=== PATIENT | male | born 1980 | race Caucasian/White ===

== ENCOUNTER 2024-09-22 13:06 | Emergency (ER) | payer BC, SELFPAY ==
[2024-09-22 13:12] VITALS: BP 104/79
--- NOTE | 2024-09-22 13:39 | ED.GENMED ---
History of Present Illness
General
Chief Complaint: Head Injury
Time Seen by Provider: 09/22/24 13:34
History of Present Illness
History of Present Illness:
TIME OF INITIAL ENCOUNTER: 1:45 PM
HPI: The patient slipped and fell at a restaurant and struck the back of his head.
EXAM:
NUMBER AND COMPLEXITY OF PROBLEMS ADDRESSED AT THE ENCOUNTER
� Chronic conditions affecting care: MS
� Acute Exacerbation and/or Progression of Chronic Illness: This is an acute problem
� Differential Diagnosis includes:
AMOUNT AND/OR COMPLEXITY OF DATA TO BE REVIEWED AND ANALYZED
� I performed an independent evaluation of and my interpretation is:
EKG:
CT:
X-rays:
Laboratory Studies:
Other:
� Review of other/old records:
� Clinical information was obtained by an independent historian:
� Prescriptions/Medications Considered but not given:
� Further testing considered but not performed:
RISK OF COMPLICATIONS AND/OR MORBIDITY OR MORTALITY OF PATIENT MANAGEMENT
� Social determinants of health affecting care:
� Discussion with other providers:
� Escalation of care including admission/observation vs risk of discharge considered:
ANY OTHER UPDATES:
Course
Orders/Labs/Results
Orders:
Orders
09/22/24 13:15
CT Head W/o Iv Contrast Urgent
Comment:
Reason For Exam: fall with head strike
Vital Signs
Initial and Last Documented VS:
Initial Vital Signs
Temp Pulse Resp BP Pulse Ox
37.1 C 95 17 104/79 100
09/22/24 13:12 09/22/24 13:12 09/22/24 13:12 09/22/24 13:12 09/22/24 13:12
Last Documented Vital Signs
Temp Pulse Resp BP Pulse Ox
37.1 C 95 17 104/79 100
09/22/24 13:12 09/22/24 13:12 09/22/24 13:12 09/22/24 13:12 09/22/24 13:12
ED Attending Note
-
Portions of this chart may have been created with voice recognition software.� Occasional wrong word or��sound alike� substitutions may have occurred due to the inherent limitations of voice recognition software.
Discharge Plan
Departure
Prescriptions:
No Action
valacyclovir [Valtrex] 500 MG tablet
500 mg PO PRN (Reason: outbreak)
Interventions
Interventions:
*Risk Screen - Suicide Last Done: 09/22/24 13:14
*General Assessment Last Done: 09/22/24 13:14
*Neglect/Abuse Screening Last Done: 09/22/24 13:14
*ED COVID-19 Vaccine History Last Done: 09/22/24 13:14
Discharge Date and Time
Print Language: SERBIAN
--- NOTE | 2024-09-22 14:22 | ED.GENMED ---
History of Present Illness
General
Chief Complaint: Head Injury
Time Seen by Provider: 09/22/24 13:34
History of Present Illness
History of Present Illness:
43-year-old male presents to the emergency department for evaluation of a head injury after a mechanical fall. No LOC. Large laceration noted to the right posterior parietal and occipital scalp, last tetanus unknown
Review of Systems
Review of Systems
Allergies reviewed?: Yes
All Other Systems: ROS reviewed and negative except as documented in HPI and ROS
Phy Exam
Physical Exam
Physical Exam:
GEN: Well appearing, NAD, WDWN
HEENT: Large 6 cm stellate lesion to the right posterior parietal and occipital scalp with moderate active bleeding oral mucosa moist, no scleral icterus
Cardiac: Regular rate
Lung: No respiratory distress, no tachypnea
MSK: No gross deformity or injuries
Skin: Good color, no pallor or jaundice, no rashes
Neuro: AO x3, cranial nerves II through XII grossly intact, moves all extremities freely
Psych: Calm, cooperative
Course
Orders/Labs/Results
Orders:
Orders
09/22/24 13:15
CT Head W/o Iv Contrast Urgent
Comment:
Reason For Exam: fall with head strike
09/22/24 14:22
Butalb/Acetaminophen/Caffeine [Fioricet] 1 tab PO NOW STA
Tetanus/Diphth/Acelpertussis [Adacel] 0.5 ml IM .ONCE ONE
Vital Signs
Initial and Last Documented VS:
Initial Vital Signs
Temp Pulse Resp BP Pulse Ox
98.7 F 95 17 104/79 100
09/22/24 13:12 09/22/24 13:12 09/22/24 13:12 09/22/24 13:12 09/22/24 13:12
Last Documented Vital Signs
Temp Pulse Resp BP Pulse Ox
98.7 F 89 17 141/84 99
09/22/24 13:12 09/22/24 14:58 09/22/24 13:12 09/22/24 14:58 09/22/24 14:58
Procedures
Laceration Closure
Scalp:
Status of Wound: clean
Size of Wound in cm: 6
Description of Wound Edges: ragged and surrounded by abrasion
Preparation: cleaned with saline
Anesthesia: 1% Lidocaine
Wound exploration: explored to base- no FB
Type of Closure: single layer closure
Skin Closure Material: skin [place]
Number of sutures: 12
MDM/Problems Addressed
MDM/Problems Addressed:
CT of the head unremarkable, wound closed with [place], tetanus status updated
*Critical Care Note
Total Time (30-74mins, 75-104mins- exclusive of procedures): Not Applicable
ED Attending Note
-
Portions of this chart may have been created with voice recognition software.� Occasional wrong word or��sound alike� substitutions may have occurred due to the inherent limitations of voice recognition software.
Discharge Plan
Departure
Patient Disposition: Home (Routine Discharge)
Date of Disposition: 09/22/24
Time of Disposition: 14:22
Patient with high blood pressure during this ER visit?: No
Discharge Problem:
Laceration of scalp
Instructions: Laceration Repair With [place] (DC)
Prescriptions:
No Action
valacyclovir [Valtrex] 500 MG tablet
500 mg PO PRN (Reason: outbreak)
Referrals:
Mario Allen MD [Family Provider] -
Stand Alone Forms: Return to Work
Activity Restrictions/Additional Instructions:
Keep wound dry for the remainder of today then you may gently wash with soap and water. [place] should be removed in 5 to 7 days by your primary care physician or urgent care
Interventions
Interventions:
*Risk Screen - Suicide Last Done: 09/22/24 13:14
*General Assessment Last Done: 09/22/24 13:14
*Neglect/Abuse Screening Last Done: 09/22/24 13:14
*ED- Fall Risk Assessment Last Done: 09/22/24 15:09
*ED COVID-19 Vaccine History Last Done: 09/22/24 13:14
*Nursing Disposition Last Done: 09/22/24 15:09
ED-Skin Assessment Last Done: 09/22/24 15:09
Discharge Date and Time
Discharge Date/Time: 09/22/24 15:10
Print Language: ARABIC
[2024-09-22] MEDS: FIORICET 1 TAB PO (14:53)
[2024-09-22] MEDS: ADACEL 0.5 ML IM (14:54)
[2024-09-22 14:58] VITALS: BP 141/84
== END 2024-09-22 15:10 | disposition home or self-care (01) ==
LOC: EMR 13:06
PROVIDERS: EMERGENCY PHYSICIAN Emergency Medicine; FAMILY PHYSICIAN Family Medicine
DX: S01.01XA Laceration without foreign body of scalp, initial encounter (principal); W19.XXXA Unspecified fall, initial encounter; Z23 Encounter for immunization
CPT/HCPCS: 12002; 90471; 99284; 70450; 90715